=== PATIENT | female | born 1975 | race African-American/Black ===

== ENCOUNTER 2017-04-18 10:05 | Emergency (ER) | payer OTHER ==
[~2017-04-18] VITALS: Ht 170.2 cm; Wt 63.5 kg
[2017-04-18 10:19] VITALS: BP 161/92
[2017-04-18] MEDS ORDERED: PRED20TA PO (10:29)
[2017-04-18] MEDS ORDERED: AZIT250T6 PO (10:29)
[2017-04-18] MEDS ORDERED: DEXT15CA37 PO (10:29)
[2017-04-18] MEDS ORDERED: PROAIR HFA8.5 GM INH (10:29)
--- NOTE | 2017-04-18 10:29 | PHYS DOC ---
Past Medical History Past Medical History: No Pertinent History Past Surgical History: No Surgical History Alcohol Use: None Drug Use: None Adult General Chief Complaint Chief Complaint: COUGH HPI HPI Patient is a 41 year old female presents the ED complaining of cough 1 week. Describes the cough is productive. Rates it as 7/10. Associated symptoms include subjective fever, sore throat, rhinorrhea. Patient is a pack-a-day smoker. Denies body aches, chest pain, shortness of breath, dizziness, weakness , abdominal pain or nausea/vomiting. Review of Systems Review of Systems Constitutional: Denies fever or chills [] Eyes: Denies change in visual acuity, redness, or eye pain [] HENT: Complains of cough and sore throat. [] Respiratory: Complains of cough. Denies shortness of breath [] Cardiovascular: No additional information not addressed in HPI [] GI: Denies abdominal pain, nausea, vomiting, bloody stools or diarrhea [] : Denies dysuria or hematuria [] Musculoskeletal: Denies back pain or joint pain [] Integument: Denies rash or skin lesions [] Neurologic: Denies headache, focal weakness or sensory changes [] Endocrine: Denies polyuria or polydipsia [] Allergies Allergies Allergies Coded Allergies Type Severity Reaction Last Updated Verified Penicillins Allergy Intermediate hives 03/04/15 No Physical Exam Physical Exam Constitutional: Well developed, well nourished, no acute distress, non-toxic appearance. [] HENT: Normocephalic, atraumatic, bilateral external ears normal, oropharynx moist, MILD PHARYNGEAL ERYTHEMA., no oral exudates, nose normal. [] Eyes: PERRLA, EOMI, conjunctiva normal, no discharge. [] Neck: Normal range of motion, no tenderness, supple, no stridor. [] Cardiovascular:Heart rate regular rhythm, no murmur [] Lungs & Thorax: Bilateral breath sounds clear to auscultation [] Abdomen: Bowel sounds normal, soft, no tenderness, no masses, no pulsatile masses. [] Skin: Warm, dry, no erythema, no rash. [] Back: No tenderness, no CVA tenderness. [] Extremities: No tenderness, no cyanosis, no clubbing, ROM intact, no edema. [] Neurologic: Alert and oriented X 3, normal motor function, normal sensory function, no focal deficits noted. [] Psychologic: Affect normal, judgement normal, mood normal. [] Current Patient Data Vital Signs Vital Signs Date Time Temp Pulse Resp B/P (MAP) Pulse Ox O2 Delivery O2 Flow Rate FiO2 04/18/17 10:19 98.3 89 20 161/92 (115) 99 Room Air 98.3 Lab Values Laboratory Tests Test 04/18/17 10:35 POC Urine HCG, Qualitative Hcg negative (Negative) EKG EKG [] Radiology/Procedures Radiology/Procedures [] Course & Med Decision Making Course & Med Decision Making Pertinent Labs and Imaging studies reviewed. (See chart for details) [] Dragon Disclaimer Dragon Disclaimer This electronic medical record was generated, in whole or in part, using a voice recognition dictation system. Departure Departure Impression: Primary Impression: Cough Additional Impression: Sore throat Disposition: HOME, SELF-CARE Condition: STABLE Referrals: NO PCP (PCP) BARRETT MONAE MD Patient Instructions: Acute Bronchitis Scripts Albuterol Sulfate (PROAIR HFA INHALER) 8.5 Gm Hfa.aer.ad 1 PUFF INH PRN Q6HRS Y for SHORTNESS OF BREATH, #1 INHALER 0 Refills Prov: DANIELLE MC 04/18/17 Dextromethorphan HBr (Robitussin) 15 Mg Capsule 15 MG PO Q6-8HRS Y for COUGH, #100 ML Prov: DANIELLE MC 04/18/17 Prednisone (PREDNISONE) 20 Mg Tablet 2 TAB PO DAILY, #10 TAB Prov: DANIELLE MC 04/18/17 Azithromycin (AZITHROMYCIN TABLET) 250 Mg Tablet 1 PKG PO UD, #6 TAB Prov: DANIELLE MC 04/18/17 Problem Qualifiers DANIELLE MC Apr 18, 2017 10:29
== END 2017-04-18 10:54 | disposition home or self-care (01) ==
LOC: ER 10:05
DX: J02.9 Acute pharyngitis, unspecified (principal); F17.200 Nicotine dependence, unspecified, uncomplicated; Z88.0 Allergy status to penicillin
CPT/HCPCS: 81025; 99283

== ENCOUNTER 2020-05-06 20:54 | Emergency (ER) | payer OTHER ==
[~2020-05-06] VITALS: Ht 170.2 cm; Wt 61.8 kg
[~2020-05-06 20:54] MED LIST: ALBU2.5V8 INH; AZIT250T6 PO; DEXT15CA37 PO; PRED20TA PO
[2020-05-06] MEDS ORDERED: TRIA15CR3 TP (21:32)
--- NOTE | 2020-05-06 21:33 | PHYS DOC ---
Past Medical History Past Medical History: No Pertinent History Past Surgical History: Other Additional Past Surgical Histo: CYST REMOVAL IN HER BREAST Smoking Status: Current Every Day Smoker Alcohol Use: None Drug Use: None General Adult EDM: Chief Complaint: ITCHING HPI: HPI: Patient is a 44 year old female who presents with a itchy rash to the right anterior and lateral shoulder that has been there for 5 days. Patient states it itches. Areas look to be healing and are scabbed over. The rashes small brown pustule areas that are scabbed over and there is no drainage, redness or signs of infection. There is no swelling. Patient has full range of motion of her arm at the shoulder. No swelling of the joint. There is no tenderness with palpation. Patient states she has been using hydrocortisone cream on the area. History is a breast cyst removal. Review of Systems: Review of Systems: Constitutional: Denies fever or chills. [] Eyes: Denies change in visual acuity. [] HENT: Denies nasal congestion or sore throat. [] Respiratory: Denies cough or shortness of breath. [] Cardiovascular: Denies chest pain or edema. [] GI: Denies abdominal pain, nausea, vomiting, bloody stools or diarrhea. [] : Denies dysuria. [] Musculoskeletal: Denies back pain or joint pain. [] Integument: Left upper arm rash rash. [] Neurologic: Denies headache, focal weakness or sensory changes. [] Endocrine: Denies polyuria or polydipsia. [] Lymphatic: Denies swollen glands. [] Psychiatric: Denies depression or anxiety. [] Heart Score: Risk Factors: Risk Factors: DM, Current or recent (<one month) smoker, HTN, HLP, family history of CAD, obesity. Risk Scores: Score 0 - 3: 2.5% MACE over next 6 weeks - Discharge Home Score 4 - 6: 20.3% MACE over next 6 weeks - Admit for Clinical Observation Score 7 - 10: 72.7% MACE over next 6 weeks - Early Invasive Strategies Allergies: Allergies: Allergies Coded Allergies Type Severity Reaction Last Updated Verified Penicillins Allergy Intermediate hives 03/04/15 No Physical Exam: PE: Constitutional: Well developed, well nourished, no acute distress, non-toxic appearance. [] HENT: Normocephalic, atraumatic, bilateral external ears normal, oropharynx moist, no oral exudates, nose normal. [] Eyes: PERRLA, EOMI, conjunctiva normal, no discharge. [] Neck: Normal range of motion, no tenderness, supple, no stridor. [] Cardiovascular:Heart rate regular rhythm, no murmur [] Lungs & Thorax: Bilateral breath sounds clear to auscultation [] Abdomen: Bowel sounds normal, soft, no tenderness, no masses, no pulsatile masses. [] Skin: Warm, dry, no erythema, right anterior and lateral scabbed over rash. [] Back: No tenderness, no CVA tenderness. [] Extremities: No tenderness, no cyanosis, no clubbing, ROM intact, no edema. [] Neurologic: Alert and oriented X 3, normal motor function, normal sensory function, no focal deficits noted. [] Psychologic: Affect normal, judgement normal, mood normal. [] Current Patient Data: Vital Signs: Vital Signs Date Time Temp Pulse Resp B/P (MAP) Pulse Ox O2 Delivery O2 Flow Rate FiO2 05/06/20 21:06 98.6 68 16 143/85 (104) 99 Room Air 98.6 EKG: EKG: [] Radiology/Procedures: Radiology/Procedures: [] Course & Med Decision Making: Course & Med Decision Making Pertinent Labs and Imaging studies reviewed. (See chart for details) See HPI. Patient is given dexamethasone 10 mg in the ED. I will give her a prescription for triamcinolone cream. Patient to follow-up with her primary care provider. She is also take Benadryl for her itching. The rash is nowhere else on her body. She is alert and oriented x4. Speaks in full complete sentences. Ambulatory with a steady gait. No extremity swelling. Radial pulse strong and present. Skin pink warm and dry. No signs of infection. She is afebrile. Full sensations and strengths in the In the affected extremity. [] Dragon Disclaimer: Dena Disclaimer: This electronic medical record was generated, in whole or in part, using a voice recognition dictation system. Departure Departure Impression: Primary Impression: Rash and nonspecific skin eruption Disposition: 01 DC HOME SELF CARE/HOMELESS Condition: STABLE Referrals: NO PCP (PCP) Patient Instructions: Rash Additional Instructions: Take Benadryl for itching also. Use medication as prescribed. Follow-up with primary care physician. Watch for signs of infection. Scripts Triamcinolone Acetonide (TRIAMCINOLONE ACETONIDE 0.1% CREAM) 15 Gm Cream..g. 1 KARIN TP TID for 5 Days, #1 TUBE Prov: RYAN MARIE APRN 05/06/20 RYAN MARIE APRN May 06, 2020 21:33
[2020-05-06] MEDS ORDERED: DEXAMETHASONE 4 MG TABLET PO ONE (21:45)
[2020-05-06 22:10] VITALS: BP 139/68
== END 2020-05-06 22:10 | disposition home or self-care (01) ==
LOC: ER 20:54
DX: R21 Rash and other nonspecific skin eruption (principal); F17.200 Nicotine dependence, unspecified, uncomplicated; Z88.0 Allergy status to penicillin
CPT/HCPCS: 99283

== ENCOUNTER 2020-07-22 21:33 | Emergency (ER) | payer OTHER ==
[~2020-07-22] VITALS: Ht 170.2 cm; Wt 60.0 kg
[~2020-07-22 21:33] MED LIST changes: +TRIA15CR3 TP
[2020-07-22 23:14] VITALS: BP 167/96
[2020-07-22] MEDS ORDERED: TRIA15CR TP (23:29)
[2020-07-22] MEDS ORDERED: METH4TAB2 PO (23:29)
[2020-07-22] MEDS ORDERED: IBUP-1007 PO (23:29)
--- NOTE | 2020-07-22 23:29 | PHYS DOC ---
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 Patient states that she constantly has sharp shooting pain in the right upper arm and some tingling. She states she is also starting to get a rash that is itchy on her upper arm that is a dermatitis type rash that is after she is carrying a whole bunch of laundry. Patient states that she thinks that she is allergic to the detergent that is on the laundry. She states that when she wears a gown and is carrying the laundry she does not have a reaction but when she does not wear a gown she has a reaction. Patient denies swelling of the extremity, weakness to the extremity, numbness of the extremity, skin color change of the extremity. Review of Systems: Review of Systems: Constitutional: Denies fever or chills. [] Eyes: Denies change in visual acuity. [] HENT: Denies nasal congestion or sore throat. [] Respiratory: Denies cough or shortness of breath. [] Cardiovascular: Denies chest pain or edema. [] GI: Denies abdominal pain, nausea, vomiting, bloody stools or diarrhea. [] : Denies dysuria. [] Musculoskeletal: Denies back pain or joint pain. +Right upper arm sharp shooting pain [] Integument: + Right arm itchy rash. [] Neurologic: Denies headache, focal weakness or sensory changes. +Intermittent tingling to the right arm down into the fingers [] Endocrine: Denies polyuria or polydipsia. [] Lymphatic: Denies swollen glands. [] Psychiatric: Denies depression or anxiety. [] Heart Score: Risk Factors: Risk Factors: DM, Current or recent (<one month) smoker, HTN, HLP, family history of CAD, obesity. Risk Scores: Score 0 - 3: 2.5% MACE over next 6 weeks - Discharge Home Score 4 - 6: 20.3% MACE over next 6 weeks - Admit for Clinical Observation Score 7 - 10: 72.7% MACE over next 6 weeks - Early Invasive Strategies Allergies: Allergies: Allergies Coded Allergies Type Severity Reaction Last Updated Verified Penicillins Allergy Intermediate hives 03/04/15 No Physical Exam: PE: Constitutional: Well developed, well nourished, no acute distress, non-toxic appearance. [] HENT: Normocephalic, atraumatic, bilateral external ears normal, oropharynx moist, no oral exudates, nose normal. [] Eyes: PERRLA, EOMI, conjunctiva normal, no discharge. [] Neck: Normal range of motion, no tenderness, supple, no stridor. [] Cardiovascular:Heart rate regular rhythm, no murmur [] Lungs & Thorax: Bilateral breath sounds clear to auscultation [] Abdomen: Bowel sounds normal, soft, no tenderness, no masses, no pulsatile masses. [] Skin: Warm, dry, no erythema, right arm contact dermatitis type rash with no di scharge or redness or signs of infection. [] Back: No tenderness, no CVA tenderness. [] Extremities: No tenderness, no cyanosis, no clubbing, ROM intact, no edema. [] Neurologic: Alert and oriented X 3, normal motor function, normal sensory function, no focal deficits noted. [] Psychologic: Affect normal, judgement normal, mood normal. [] Current Patient Data: Vital Signs: Vital Signs Date Time Temp Pulse Resp B/P (MAP) Pulse Ox O2 Delivery O2 Flow Rate FiO2 07/22/20 21:46 97.9 57 16 165/93 (117) 96 Room Air 97.9 EKG: EKG: [] Radiology/Procedures: Radiology/Procedures: [] Course & Med Decision Making: Course & Med Decision Making Pertinent Labs and Imaging studies reviewed. (See chart for details) See HPI. Alert and oriented x4. Skin pink warm and dry. Patient has a kenny matitis type rash sporadically to the forearm and humerus that is brown in color and looks like healing blisters. Full range of motion of bilateral upper extremities at all joints. No joint deformities or swelling. No swelling of the extremity. Radial pulses strong present. Cap refill less than 2 seconds. Full strength and equal in the extremities. Patient is given a Medrol Dosepak, ibuprofen, triamcinolone cream. [] Dragon Disclaimer: Dragon Disclaimer: This electronic medical record was generated, in whole or in part, using a voice recognition dictation system. Departure Departure Impression: Primary Impression: Rash and nonspecific skin eruption Additional Impression: Cervical radiculopathy Disposition: 01 DC HOME SELF CARE/HOMELESS Condition: STABLE Referrals: NO PCP (PCP) Patient Instructions: Cervical Radiculopathy, [id number], Contact Dermatitis, Sngr-[id number], Pinched Nerve Additional Instructions: Follow-up with your primary care physician. Rest the extremity if you can. Use medications as prescribed and with food. Also try the lidocaine patches for aggravated nerves that you can buy off the shelf at [employer]. Scripts Triamcinolone Acetonide (TRIAMCINOLONE ACETONIDE 0.5% CREAM) 15 Gm Cream..g. 1 KARIN TP BID PRN for RASH, #30 GM Prov: RYAN MARIE ASSOCIATE PROGRAMMER ANALYST 07/22/20 Ibuprofen (IBUPROFEN) 600 Mg Tablet 600 MG PO PRN Q6HRS PRN for INFLAMMATION, #30 TAB Prov: RYAN MARIE ASSOCIATE PROGRAMMER ANALYST 07/22/20 Methylprednisolone (MEDROL) 4 Mg Tab.ds.pk 1 PKG PO UD, #1 PKG Prov: RYAN MARIE ASSOCIATE PROGRAMMER ANALYST 07/22/20 RYAN MARIE ASSOCIATE PROGRAMMER ANALYST Jul 22, 2020 23:29
== END 2020-07-22 23:51 | disposition home or self-care (01) ==
LOC: ER 21:33
DX: M54.12 Radiculopathy, cervical region (principal); R21 Rash and other nonspecific skin eruption; F17.200 Nicotine dependence, unspecified, uncomplicated; Z88.0 Allergy status to penicillin
CPT/HCPCS: 99282

== ENCOUNTER 2020-09-26 16:38 | Emergency (ER) | payer OTHER ==
[~2020-09-26] VITALS: Ht 170.2 cm; Wt 61.0 kg
[~2020-09-26 16:38] MED LIST changes: +IBUP-1007 PO; +METH4TAB2 PO; +TRIA15CR TP
[2020-09-26] MEDS ORDERED: IV NORMAL SALINE 1000ML BAG 1,000 ML IV SCH (17:15)
[2020-09-26] MEDS ORDERED: fentaNYL PF VIAL 100 MCG/2 ML VIAL IV PRN (17:15)
[2020-09-26] MEDS ORDERED: FAMOTIDINE 20 MG/2 ML VIAL IVP ONE (17:15)
[2020-09-26] MEDS ORDERED: ONDANSETRON PF 4 MG/2 ML VIAL. IVP ONE (17:15)
[2020-09-26 17:31] LABS: BILIRUBIN,URINE NEGATIVE (NEG); CLARITY,URINE CLEAR; COLOR,URINE YELLOW; NITRITE,URINE NEGATIVE (NEG); PROTEIN,URINE 100 mg/dL (NEG-TRACE)
[2020-09-26 17:38] LABS: BACTERIA,URINE MODERATE /HPF (0-FEW)
[2020-09-26 17:39] LABS: TRICHOMONAS,URINE PRESENT
--- NOTE | 2020-09-26 17:39 | EKG ---
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
[2020-09-26 17:45] LABS: BARBITURATES NEG (NEG); BENZODIAZEPINES NEG (NEG); CANNABINOIDS NEG (NEG); COCAINE NEG (NEG); METHADONE NEG (NEG); OPIATES NEG (NEG); PHENCYCLIDINE NEG (NEG)
[2020-09-26 17:54] LABS: AMPHETAMINE/METHAMPHETAMINE NEG (NEG)
--- NOTE | 2020-09-26 17:56 | RAD ---
XR CHEST 1V Clinical History: Reason: abd pain, vomiting / Spl. Instructions: / History: Technique: AP view of the chest was obtained at 09/26/2020 5:41 PM. Comparison: None. Findings: The cardiomediastinal silhouette is normal. The pulmonary vasculature is normal. The lungs and pleura l margins are clear. Impression: No evidence of an acute cardiopulmonary process. Electronically signed by: Sergo Avendaño III, MD (09/26/2020 5:53 PM) [facility]
--- NOTE | 2020-09-26 17:57 | EKG ---
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
[2020-09-26 17:58] LABS: BASO # 0.1 x10^3/uL (0.0-0.2); BASO % 1 % (0-3); EOS % 0 % (0-3); HEMATOCRIT 43.4 % (36.0-47.0); HEMOGLOBIN 14.4 g/dL (12.0-15.5); LYMPH # 1.3 x10^3/uL (1.0-4.8); LYMPH % 12 % (24-48); MEAN CORPUSCULAR HEMOGLOBIN 31 pg (25-35); MEAN CORPUSCULAR HGB CONC 33 g/dL (31-37); MEAN CORPUSCULAR VOLUME 93 fL (79-100); MONO # 0.8 x10^3/uL (0.0-1.1); MONO % 8 % (0-9); NEUT # 8.1 x10^3/uL (1.8-7.7); NEUT % 79 % (31-73); PLATELET COUNT 187 x10^3/uL (140-400); RED BLOOD COUNT 4.66 x10^6/uL (3.50-5.40); RED CELL DISTRIBUTION WIDTH 15.9 % (11.5-14.5); WHITE BLOOD COUNT 10.4 x10^3/uL (4.0-11.0)
[2020-09-26 18:55] LABS: CREATININE 0.9 mg/dL (0.6-1.0); GFR 81.6; POTASSIUM 3.5 mmol/L (3.5-5.1)
[2020-09-26 19:02] LABS: ALBUMIN 3.4 g/dL (3.4-5.0); MAGNESIUM 1.7 mg/dL (1.8-2.4); TOTAL BILIRUBIN 0.5 mg/dL (0.2-1.0); TOTAL PROTEIN 6.8 g/dL (6.4-8.2)
[2020-09-26] MEDS ORDERED: IOHEXOL 300 MG/ML 100ML VIAL. IV ONE (19:15)
[2020-09-26] MEDS ORDERED: CONTRAST GIVEN. MC PRN (19:15)
--- NOTE | 2020-09-26 19:40 | RAD ---
CT SCAN OF THE ABDOMEN AND PELVIS WITH IV CONTRAST. History: Reason: RUQ abd pain, VOMITING Comparison:None. Procedure: Contiguous axial images of the abdomen and pelvis were performed after the administration of 75 cc o f Omni 3 IV contrast. Oral contrast: No. Findings: There is mild patchy opacity in left lung base and marked patchy opacity in the right lung base. There is respiratory motion. The appendix is not well seen however there is a small caliber loop of b owel medial to cecum which could be a normal appendix obscured by motion artifact. Liver: Unremarkable Spleen: Unremarkable Pancreas: Unremarkable Adrenal Glands: Unremarkable Kidneys: Unremarkable There is no mass or lymphadenopathy. There is no free air. There is no free fluid. The urinary bladder appears normal. Impression: Basilar pulmonary infiltrates likely pneumonia. End impression PQRS Compliance Statement: One or more of the following individualized dose reduction techniques were utilized for this examinat ion: 1. Automated exposure control 2. Adjustment of the mA and/or kV according to patient size 3. Use of iterative reconstruction technique Electronically signed by: Sergo Avendaño III, MD (09/26/2020 7:38 PM) [facility]
[2020-09-26] MEDS ORDERED: DEXAMETHASONE SOD PHOS 20 MG/5 ML VIAL. IV ONE (20:15)
[2020-09-26] MEDS ORDERED: cefTRIAXone IV Push 1 GM VIAL. IVP ONE (20:15)
[2020-09-26] MEDS ORDERED: metroNIDAZOLE 500 MG TABLET PO ONE (20:15)
[2020-09-26] MEDS ORDERED: diphenhydrAMINE 50 MG/ML VIAL IVP ONE (20:15)
[2020-09-26] MEDS ORDERED: DOXY100T PO (21:36)
[2020-09-26] MEDS ORDERED: DICY20TA3 PO (21:36)
[2020-09-26] MEDS ORDERED: PROC10TA57 PO (21:36)
--- NOTE | 2020-09-26 21:36 | PHYS DOC ---
Past Medical History Past Medical History: No Pertinent History Past Surgical History: Other Additional Past Surgical Histo: CYST REMOVAL IN HER BREAST Smoking Status: Current Every Day Smoker Alcohol Use: None Drug Use: None General Adult EDM: Chief Complaint: ABDOMINAL PAIN HPI: HPI: Patient is a 44 year old female no significant medical history presenting today complaining of 10 out of 10 right upper quadrant abdominal pain with nausea and vomiting, she states symptoms have been intermittent for the last 1-2 weeks. Denies any fever, denies any chest pain or shortness of breath. She states she has been coughing for 2 weeks as well. Describes abdominal pain as throbbing. Review of Systems: Review of Systems: Constitutional: Denies fever or chills. [] Eyes: Denies change in visual acuity. [] HENT: Denies nasal congestion or sore throat. [] Respiratory: Denies cough or shortness of breath. [] Cardiovascular: Denies chest pain or edema. [] GI: Reports right upper quadrant abdominal pain with nausea and vomiting, denies bloody stools or diarrhea. [] : Denies dysuria. [] Musculoskeletal: Denies back pain or joint pain. [] Integument: Denies rash. [] Neurologic: Denies headache, focal weakness or sensory changes. [] Psychiatric: Denies depression or anxiety. [] Heart Score: C/O Chest Pain: N/A Risk Factors: Risk Factors: DM, Current or recent (<one month) smoker, HTN, HLP, family history of CAD, obesity. Risk Scores: Score 0 - 3: 2.5% MACE over next 6 weeks - Discharge Home Score 4 - 6: 20.3% MACE over next 6 weeks - Admit for Clinical Observation Score 7 - 10: 72.7% MACE over next 6 weeks - Early Invasive Strategies Current Medications: Current Medications Medications (Trade) Dose Ordered Sig/Angel Start Time Stop Time Status Last Admin Dose Admin Ceftriaxone Sodium (Rocephin) 1 gm 1X ONCE 09/26/20 20:15 09/26/20 20:16 DC 09/26/20 20:32 1 GM Dexamethasone Sodium Phosphate (Decadron) 10 mg 1X ONCE 09/26/20 20:15 09/26/20 20:16 DC 09/26/20 20:32 10 MG Diphenhydramine HCl (Benadryl) 25 mg 1X ONCE 09/26/20 20:15 09/26/20 20:16 DC 09/26/20 20:32 25 MG Famotidine (Pepcid Vial) 20 mg 1X ONCE 09/26/20 17:15 09/26/20 17:17 DC 09/26/20 17:36 20 MG Fentanyl Citrate (Fentanyl 2ml Vial) 50 mcg PRN Q15MIN PRN 09/26/20 17:15 09/27/20 17:14 09/26/20 17:36 50 MCG Info (CONTRAST GIVEN -- Rx MONITORING) 1 each PRN DAILY PRN 09/26/20 19:15 09/28/20 19:14 Iohexol (Omnipaque 300 Mg/ml) 75 ml 1X ONCE 09/26/20 19:15 09/26/20 19:16 DC 09/26/20 19:22 75 ML Metronidazole (Flagyl) 2,000 mg 1X ONCE 09/26/20 20:15 09/26/20 20:16 DC 09/26/20 20:29 2,000 MG Ondansetron HCl (Zofran) 4 mg 1X ONCE 09/26/20 17:15 09/26/20 17:17 DC 09/26/20 17:36 4 MG Sodium Chloride 1,000 ml @ 1,000 mls/hr Q1H 09/26/20 17:15 09/26/20 18:14 DC 09/26/20 17:36 1,000 MLS/HR Allergies: Allergies: Allergies Coded Allergies Type Severity Reaction Last Updated Verified Penicillins Allergy Intermediate hives 03/04/15 No Physical Exam: PE: Constitutional: Well developed, well nourished, no acute distress, non-toxic appearance. [] HENT: Normocephalic, atraumatic, bilateral external ears normal, oropharynx moist, no oral exudates, nose normal. [] Eyes: PERRLA, EOMI, conjunctiva normal, no discharge. [] Neck: Normal range of motion, no tenderness, supple, no stridor. [] Cardiovascular:Heart rate regular rhythm, no murmur [] Lungs & Thorax: Bilateral breath sounds clear to auscultation [] Abdomen: Bowel sounds normal, soft, no tenderness, no masses, no pulsatile masses. [] Skin: Warm, dry, no erythema, no rash. [] Back: No tenderness, no CVA tenderness. [] Extremities: No tenderness, no cyanosis, no clubbing, ROM intact, no edema. [] Neurologic: Alert and oriented X 3, normal motor function, normal sensory function, no focal deficits noted. [] Psychologic: Affect normal, judgement normal, mood normal. [] Current Patient Data: Labs: Laboratory Tests Test 09/26/20 17:05 09/26/20 17:30 09/26/20 18:35 Urine Collection Type Unknown Urine Color Yellow Urine Clarity Clear Urine pH 6.0 (<5.0-8.0) Urine Specific [place] 1.025 (1.000-1.030) Urine Protein 100 mg/dL (NEG-TRACE) Urine Glucose (UA) Negative mg/dL (NEG) Urine Ketones (Stick) Negative mg/dL (NEG) Urine Blood Large (NEG) Urine Nitrite Negative (NEG) Urine Bilirubin Negative (NEG) Urine Urobilinogen Dipstick 1.0 mg/dL (0.2 mg/dL) Urine Leukocyte Esterase Small (NEG) Urine RBC 3-5 /HPF (0-2) Urine WBC 5-10 /HPF (0-4) Urine Squamous Epithelial Cells Many /LPF Urine Bacteria Moderate /HPF (0-FEW) Urine Mucus Marked /LPF Urine Trichomonas Present Urine Opiates Screen Neg (NEG) Urine Methadone Screen Neg (NEG) Urine Barbiturates Neg (NEG) Urine Phencyclidine Screen Neg (NEG) Urine Amphetamine/Methamphetamine Neg (NEG) Urine Benzodiazepines Screen Neg (NEG) Urine Cocaine Screen Neg (NEG) Urine Cannabinoids Screen Neg (NEG) Urine Ethyl Alcohol Neg (NEG) White Blood Count 10.4 x10^3/uL (4.0-11.0) Red Blood Count 4.66 x10^6/uL (3.50-5.40) Hemoglobin 14.4 g/dL (12.0-15.5) Hematocrit 43.4 % (36.0-47.0) Mean Corpuscular Volume 93 fL (79-100) Mean Corpuscular Hemoglobin 31 pg (25-35) Mean Corpuscular Hemoglobin Concent 33 g/dL (31-37) Red Cell Distribution Width 15.9 % (11.5-14.5) H Platelet Count 187 x10^3/uL (140-400) Neutrophils (%) (Auto) 79 % (31-73) H Lymphocytes (%) (Auto) 12 % (24-48) L Monocytes (%) (Auto) 8 % (0-9) Eosinophils (%) (Auto) 0 % (0-3) Basophils (%) (Auto) 1 % (0-3) Neutrophils # (Auto) 8.1 x10^3/uL (1.8-7.7) H Lymphocytes # (Auto) 1.3 x10^3/uL (1.0-4.8) Monocytes # (Auto) 0.8 x10^3/uL (0.0-1.1) Eosinophils # (Auto) 0.0 x10^3/uL (0.0-0.7) Basophils # (Auto) 0.1 x10^3/uL (0.0-0.2) Sodium Level 144 mmol/L (136-145) Potassium Level 3.5 mmol/L (3.5-5.1) Chloride Level 105 mmol/L (98-107) Carbon Dioxide Level 25 mmol/L (21-32) Anion Gap 14 (6-14) Blood Urea Nitrogen 10 mg/dL (7-20) Creatinine 0.9 mg/dL (0.6-1.0) Estimated GFR (Cockcroft-Gault) 81.6 BUN/Creatinine Ratio 11 (6-20) Glucose Level 113 mg/dL (70-99) H Calcium Level 8.0 mg/dL (8.5-10.1) L Magnesium Level 1.7 mg/dL (1.8-2.4) L Total Bilirubin 0.5 mg/dL (0.2-1.0) Aspartate Amino Transferase (AST) 21 U/L (15-37) Alanine Aminotransferase (ALT) 25 U/L (14-59) Alkaline Phosphatase 94 U/L (46-116) Troponin I Quantitative < 0.017 ng/mL (0.000-0.055) VT-Rfa-P-Type Natriuretic Peptide 736 pg/mL (0-124) H Total Protein 6.8 g/dL (6.4-8.2) Albumin 3.4 g/dL (3.4-5.0) Albumin/Globulin Ratio 1.0 (1.0-1.7) Lipase 42 U/L (73-393) L Laboratory Tests 09/26/20 17:30 Laboratory Tests 09/26/20 18:35 Vital Signs: Vital Signs Date Time Temp Pulse Resp B/P (MAP) Pulse Ox O2 Delivery O2 Flow Rate FiO2 09/26/20 20:34 99.5 99.5 09/26/20 20:28 102 131/76 (94) 97 Room Air 09/26/20 17:09 22 EKG: EK interpreted by Dr Bernstein sinus rhythm heart rate [address] depression on V1, V2 V3. No STEMI [] 1742 repeat EKG interpreted by Dr. bernstein sinus rhythm HR [address] de pression on V1, V2 V3. No STEMI [] Radiology/Procedures: Radiology/Procedures: []PROCEDURE: CT ABD PELV W/ IV CONTRST ONLY CT SCAN OF THE ABDOMEN AND PELVIS WITH IV CONTRAST. History: Reason: RUQ abd pain, VOMITING Comparison:None. Procedure: Contiguous axial images of the abdomen and pelvis were performed after the administration of 75 cc of Omni 3 IV contrast. Oral contrast: No. Findings: There is mild patchy opacity in left lung base and marked patchy opacity in the right lung base. There is respiratory motion. The appendix is not well seen however there is a small caliber loop of bowel medial to cecum which could be a normal appendix obscured by motion artifact. Liver: Unremarkable Spleen: Unremarkable Pancreas: Unremarkable Adrenal Glands: Unremarkable Kidneys: Unremarkable There is no mass or lymphadenopathy. There is no free air. There is no free fluid. The urinary bladder appears normal. Impression: Basilar pulmonary infiltrates likely pneumonia. End impression PQRS Compliance Statement: One or more of the following individualized dose reduction techniques were utilized for this examination: 1. Automated exposure control 2. Adjustment of the mA and/or kV according to patient size 3. Use of iterative reconstruction technique Electronically signed by: Swapnil Cui III, MD (09/26/2020 7:38 PM) [facility] DICTATED and SIGNED BY: SWAPNIL CUI III, MD DATE: 09/26/20 [id number] 0 PROCEDURE: PORTABLE CHEST 1V XR CHEST 1V Clinical History: Reason: abd pain, vomiting / Spl. Instructions: / History: Technique: AP view of the chest was obtained at 09/26/2020 5:41 PM. Comparison: None. Findings: The cardiomediastinal silhouette is normal. The pulmonary vasculature is normal. The lungs and pleural margins are clear. Impression: No evidence of an acute cardiopulmonary process. Electronically signed by: Swapnil Cui III, MD (09/26/2020 5:53 PM) [facility] DICTATED and SIGNED BY: SWAPNIL CUI III, MD DATE: 09/26/20 [id number] Course & Med Decision Making: Course & Med Decision Making Pertinent Labs and Imaging studies reviewed. (See chart for details) This is a 44-year-old female patient presenting to the ED today complaining of right upper quadrant abdominal pain with nausea and vomiting for 1 to 2 weeks. CBC, CMP with no acute findings, troponin is normal, EKG with nonspecific ST depressions, patient has no chest pain. Chest x-ray is negative for any acute findings, CT of the abdomen and pelvic was noted for bilateral pulmonary infiltrates. UA positive for UTI and trichomonas. Patient was treated in the ED. Patient was tested for COVID-19 Patient was offered admission to the hospital, she declined. She was discharged to home on doxycycline which will cover her for pneumonia and STDs. Also discharged on Compazine. Follow-up with PCP in 1 to 2 weeks Dena Disclaimer: Dena Disclaimer: This electronic medical record was generated, in whole or in part, using a voice recognition dictation system. Departure Departure Impression: Primary Impression: UTI (urinary tract infection) Qualified Codes: N39.0 - Urinary tract infection, site not specified Additional Impressions: Right upper quadrant pain Trichomonas vaginitis Bilateral pneumonia Qualified Codes: J18.9 - Pneumonia, unspecified organism Person under investigation for COVID-19 Disposition: 01 [place] HOME SELF CARE/HOMELESS Condition: STABLE Referrals: NO PCP (PCP) followup with your doctor in 1-2 weeks Patient Instructions: Pneumonia, Adult, Trichomoniasis-Brief, Urinary Tract Infection Additional Instructions: You were evaluated in the emergency room, you are noted to have urinary tract infection and trichomonas. You also have pneumonia. Please complete your antibiotics. You were tested for COVID-19, we will call you as soon as results are available. Quarantine yourself until then Scripts Dicyclomine Hcl (DICYCLOMINE HCL) 20 Mg Tablet 1 TAB PO TID, #30 TAB 1 Refill Prov: CAMDEN OWUSU APRN 09/26/20 Prochlorperazine Maleate (Compazine) 10 Mg Tablet 1 TAB PO Q6HRS, #20 TAB 0 Refills Prov: CAMDEN OWUSU APRN 09/26/20 Doxycycline Hyclate (DOXYCYCLINE HYCLATE) 100 Mg Tablet 1 TAB PO BID, #14 TAB Prov: CAMDEN OWUSU LAST SAWYER 09/26/20 CAMDEN OWUSU APRN Sep 26, 2020 21:36
[2020-09-26 21:38] VITALS: BP 127/71
--- NOTE | 2020-09-28 10:09 | NUR ---
IP: Informed pt of negative COVID test. Pt verbalized understanding
== END 2020-09-26 21:45 | disposition home or self-care (01) ==
LOC: ER 16:38
DX: N39.0 Urinary tract infection, site not specified (principal); Z20.822 Contact with and (suspected) exposure to COVID-19; J18.9 Pneumonia, unspecified organism; A59.01 Trichomonal vulvovaginitis; F17.200 Nicotine dependence, unspecified, uncomplicated; Z88.0 Allergy status to penicillin
CPT/HCPCS: 36415; 71045; 74177; 80053; 80307; 81001; 83690; 83735; 83880; 84484; 85025; 87086; 93005; 96361; 96374; 96375; 99284; J0696; J1100; J1200; J2405; J3010; J3490; J7030; Q9967; U0003

== ENCOUNTER 2021-10-01 22:32 | Emergency (ER) | payer OTHER ==
[~2021-10-01] VITALS: Ht 170.2 cm; Wt 64.5 kg
[~2021-10-01 22:32] MED LIST changes: +DICY20TA PO; +DOXY100T PO; +PROC10TA57 PO
[2021-10-01 23:35] VITALS: BP 170/112
--- NOTE | 2021-10-01 23:59 | PHYS DOC ---
Past Medical History Past Medical History: No Pertinent History Past Surgical History: Other Additional Past Surgical Histo: CYST REMOVAL IN HER BREAST Smoking Status: Current Every Day Smoker Alcohol Use: None Drug Use: None General Adult EDM: Chief Complaint: LOWER EXT PAIN HPI: HPI: Patient is a 46-year-old female who presents today with right leg pain. Patient states the pain started yesterday and she denies any trauma to the leg. Patient states she works at the [employer], she was given a pair of steel toed boots to wear at work, she states they were too big for her, she said she wore her own shoes inside the boots and she said since that time she has had right leg pain. Patient has not taken any pain medication for it patient did ambulate into the department and now states that she is unable to walk. Review of Systems: Review of Systems: Constitutional: Denies fever or chills. [] Eyes: Denies change in visual acuity. [] HENT: Denies nasal congestion or sore throat. [] Respiratory: Denies cough or shortness of breath. [] Cardiovascular: Denies chest pain or edema. [] GI: Denies abdominal pain, nausea, vomiting, bloody stools or diarrhea. [] : Denies dysuria. [] Musculoskeletal: Right leg pain Integument: Denies rash. [] Neurologic: Denies headache, focal weakness or sensory changes. [] Endocrine: Denies polyuria or polydipsia. [] Lymphatic: Denies swollen glands. [] Psychiatric: Denies depression or anxiety. [] Heart Score: C/O Chest Pain: No Risk Factors: Risk Factors: DM, Current or recent (<one month) smoker, HTN, HLP, family history of CAD, obesity. Risk Scores: Score 0 - 3: 2.5% MACE over next 6 weeks - Discharge Home Score 4 - 6: 20.3% MACE over next 6 weeks - Admit for Clinical Observation Score 7 - 10: 72.7% MACE over next 6 weeks - Early Invasive Strategies Allergies: Allergies: Allergies Coded Allergies Type Severity Reaction Last Updated Verified Penicillins Allergy Intermediate hives 03/04/15 No Physical Exam: PE: Constitutional: Well developed, well nourished, no acute distress, non-toxic appearance. [] HENT: Normocephalic, atraumatic, bilateral external ears normal, oropharynx moist, no oral exudates, nose normal. [] Eyes: PERRLA, EOMI, conjunctiva normal, no discharge. [] Neck: Normal range of motion, no tenderness, supple, no stridor. [] Cardiovascular:Heart rate regular rhythm, no murmur [] Lungs & Thorax: Bilateral breath sounds clear to auscultation [] Abdomen: Bowel sounds normal, soft, no tenderness, no masses, no pulsatile masses. [] Skin: Warm, dry, no erythema, no rash. [] Back: No tenderness, no CVA tenderness. [] Extremities: Right leg is tender to touch, right dorsalis pedis and posterior tibial pulse is 2+, no swelling no injury noted neurovascular is intact distal to the pain, patient has normal range of motion. Neurologic: Alert and oriented X 3, normal motor function, normal sensory function, no focal deficits noted. [] Psychologic: Affect normal, judgement normal, mood normal. [] Current Patient Data: Vital Signs: Vital Signs Date Time Temp Pulse Resp B/P (MAP) Pulse Ox O2 Delivery O2 Flow Rate FiO2 10/01/21 23:35 98.4 99 18 170/112 (131) 96 Room Air 98.4 EKG: EKG: [] Radiology/Procedures: Radiology/Procedures: REASON: pain in leg PROCEDURE: TIBIA FIBULA RIGHT EXAM: AP and lateral views of the right femur AP and lateral views right tibia/fibula DATE: 10/01/2021 12:31 AM INDICATION: Reason: pain in leg / Spl. Instructions: / History: . COMPARISON: No Prior FINDINGS/ IMPRESSION: AP view of the lower tibia/fibula/ankle is not submitted for evaluation. Within these constraints: 1. No acute fracture or dislocation of the right femur or right lower leg. 2. Lucent lesion within the subtrochanteric right femur without aggressive features. 3. Midfoot degenerative changes are seen. Electronically signed by: Augustin Harris MD (10/02/2021 12:40 AM) [facility] Course & Med Decision Making: Course & Med Decision Making Pertinent Labs and Imaging studies reviewed. (See chart for details) 0049 I did review radiological results with patient and did inform her there was no acute findings on the x-rays, I did inform her that if there is musculoskeletal issues they would not show up on plain film x-rays, and that she would need to follow-up with her primary care physician for further evaluation and management of her leg pain should it continue. Patient is encouraged to take Tylenol and/or ibuprofen as needed for pain also she may use [id number] nter Biofreeze as needed for muscle pain as well, she is also encouraged to wear well supportive shoes to help with leg pain at a new job. Patient verbalized understanding this and agreeable with the plan of care. Dena Disclaimer: Dena Disclaimer: This electronic medical record was generated, in whole or in part, using a voice recognition dictation system. Departure Departure Impression: Primary Impression: Leg pain, right Disposition: HOME / SELF CARE / HOMELESS Condition: STABLE Referrals: NO PCP (PCP) TIMOTHY CHA Jr. DO Additional Instructions: [id number] Tylenol and/or ibuprofen as needed for pain in your right leg You may also try compression stockings to help with leg fatigue and pain Wear supportive shoes while at work to help with leg pain You may use [id number] Biofreeze as directed for leg pain Follow-up with your primary care physician or one of the listed clinics below for further evaluation and management of your leg pain. [facility] [address] [place] [address] [facility] [address] [place] [address] [facility] [address] [facility] [place] [address] [facility] [address] [place] [address] [facility] [address] [place] [address] [address] [place] [address] [address] [place] [address] [place] [address] [facility] [address] [place] [address] [facility] [address] [place] [address] [facility] [address] [place] [address] [employer] FORMER Oct 01, 2021 23:59
[2021-10-02] MEDS ORDERED: IBUPROFEN 200 MG TABLET. PO ONE (00:30)
--- NOTE | 2021-10-02 00:42 | RAD ---
EXAM: AP and lateral views of the right femur AP and lateral views right tibia/fibula DATE: 10/01/2021 12:31 AM INDICATION: Reason: pain in leg / Spl. Instructions: / History: . COMPARISON: No Prior FINDINGS/ IMPRESSION: AP view of the lower tibia/fibula/ankle is not submitted for evaluation. Within these constraints: 1. No acute fracture or dislocation of the right femur or right lower leg. 2. Lucent lesion within the subtrochanteric right femur without aggressive features. 3. Midfoot degenerative changes are seen. Electronically signed by: Augustin Harris MD (10/02/2021 12:40 AM) [facility]
== END 2021-10-02 01:13 | disposition home or self-care (01) ==
LOC: ER 22:32
DX: M79.604 Pain in right leg (principal); F17.200 Nicotine dependence, unspecified, uncomplicated; Z88.0 Allergy status to penicillin
CPT/HCPCS: 73552; 73590; 99284